=== PATIENT | female | born 1965 | race American Indian/Alaskan Native ===

== ENCOUNTER 2021-06-20 06:50 | Emergency (ER) | payer MEDICAID ==
[2021-06-20] MEDS ORDERED: SODIUM CHLORIDE 0.9% 1000 ML 1,000 ML IV ONE (07:30)
[2021-06-20] MEDS ORDERED: MORPHINE 4 MG/1 ML INJ IV ONE (07:30)
[2021-06-20] MEDS ORDERED: ONDANSETRON 4 MG/2 ML INJ IV ONE ×2 (07:30→11:35)
--- NOTE | 2021-06-20 07:33 | Emergency Department Report ---
ED Chest Pain HPI - General Chief Complaint: Chest Pain Stated Complaint: chest pain Time Seen by Provider: 06/20/21 07:17 Source: patient, EMS Mode of arrival: Stretcher Limitations: No Limitations - History of Present Illness Initial Comments: 56-year-old -Spanish female presents to the emergency department with complaint of a 3-day history of generalized chest pain and upper abdominal pain that began the day after the patient had a cholecystectomy at [facility]. Patient says that she has been taking the prescribed Percocet 5 mg without any relief. The chest pain radiates up towards the upper back and neck. She denies any fever, shortness of breath, nausea, vomiting or diaphoresis. She has a past medical history of hypertension. Patient is a tobacco smoker but has not had any cigarettes since her surgery. Her father had an AR at age 54. - Related Data Home Medications Medication Instructions Recorded Confirmed Last Taken Omeprazole 20 mg PO 06/20/21 1 Day Ago ~06/19/21 Percocet 10/325 mg PO 06/20/21 06/20/21 amLODIPine 10 mg PO 06/20/21 1 Day Ago ~06/19/21 Allergies Allergy/AdvReac Type Severity Reaction Status Date / Time Tetracyclines Allergy Vomiting Verified 06/20/21 07:36 Heart Score - HEART Score History: Slightly suspicious EKG: Normal Age: 45-65 Risk factors: 1-2 risk factors Troponin: < normal limit HEART Score: 2 - EKG Read Time Time EKG Completed: 07:14 EKG Read Time: 07:15 ED Review of Systems ROS: Stated complaint: chest pain Other details as noted in HPI Comment: All other systems reviewed and negative Constitutional: denies: chills, fever Eyes: denies: eye pain, vision change ENT: denies: ear pain, throat pain Respiratory: denies: cough, shortness of breath Cardiovascular: chest pain. denies: palpitations Gastrointestinal: abdominal pain. denies: vomiting Genitourinary: denies: dysuria, discharge Musculoskeletal: back pain. denies: arthralgia Skin: denies: rash, lesions Neurological: denies: headache, weakness ED Past Medical Hx - Past Medical History Hx Hypertension: Yes Additional medical history: Gastritis, Gall Bladder Removal on 06/17/2021 - Surgical History Past Surgical History?: Yes Hx Cholecystectomy: Yes - Medications Home Medications: Home Medications Medication Instructions Recorded Confirmed Last Taken Type Omeprazole 20 mg PO 06/20/21 1 Day Ago History ~06/19/21 Percocet 10/325 mg PO 06/20/21 06/20/21 History amLODIPine 10 mg PO 06/20/21 1 Day Ago History ~06/19/21 ED Physical Exam - General Limitations: No Limitations - Other Other exam information: GENERAL: The patient is well-developed well-nourished. HENT: Normocephalic. Atraumatic. Patient has moist mucous membranes. EYES: Extraocular motions are intact. NECK: Supple. Trachea is midline. CHEST/LUNGS: Clear to auscultation. There is no respiratory distress noted. HEART/CARDIOVASCULAR: Regular. There is no tachycardia. There is no murmur. ABDOMEN: Abdomen is soft. Generalized abdominal tenderness to palpation worse in the upper quadrants. Patient has normal bowel sounds. SKIN: Skin is warm and dry. NEURO: The patient is awake, alert, and oriented. The patient is cooperative. The patient has no focal neurologic deficits. Normal speech. MUSCULOSKELETAL: There is no tenderness or deformity. There is no limitation range of motion. ED Course Vital Signs 06/20/21 06/20/21 06/20/21 07:15 07:29 07:30 Temperature 98.1 F Pulse Rate 81 79 93 H Respiratory 25 H 17 Rate Blood Pressure 163/120 Blood Pressure 163/120 [Left] O2 Sat by Pulse 100 99 Oximetry 06/20/21 06/20/21 06/20/21 07:45 07:50 08:01 Temperature Pulse Rate 88 97 H Respiratory 35 H 20 22 Rate Blood Pressure 163/120 176/119 Blood Pressure [Left] O2 Sat by Pulse 100 100 100 Oximetry 06/20/21 06/20/21 06/20/21 08:15 08:31 08:45 Temperature Pulse Rate 92 H 98 H 95 H Respiratory 37 H 40 H 34 H Rate Blood Pressure 176/119 185/107 185/107 Blood Pressure [Left] O2 Sat by Pulse 100 99 100 Oximetry 06/20/21 06/20/21 06/20/21 09:01 09:08 09:15 Temperature Pulse Rate 90 100 H Respiratory 22 26 H 26 H Rate Blood Pressure 194/119 194/119 Blood Pressure [Left] O2 Sat by Pulse 99 100 Oximetry 06/20/21 06/20/21 06/20/21 09:44 09:45 09:49 Temperature Pulse Rate 97 H 97 H 100 H Respiratory 37 H 26 H Rate Blood Pressure 202/118 202/118 202/118 Blood Pressure [Left] O2 Sat by Pulse 98 99 Oximetry 06/20/21 06/20/21 06/20/21 10:01 10:15 10:31 Temperature Pulse Rate 106 H 103 H 105 H Respiratory 20 22 24 Rate Blood Pressure 185/128 185/128 194/119 Blood Pressure [Left] O2 Sat by Pulse 98 97 97 Oximetry 06/20/21 06/20/21 06/20/21 10:45 11:01 11:15 Temperature Pulse Rate 106 H 101 H Respiratory 19 21 Rate Blood Pressure 194/119 185/128 185/128 Blood Pressure [Left] O2 Sat by Pulse 98 96 98 Oximetry 06/20/21 06/20/21 06/20/21 11:30 11:45 12:01 Temperature Pulse Rate 100 H 99 H Respiratory 36 H 19 Rate Blood Pressure 157/114 172/105 188/110 Blood Pressure [Left] O2 Sat by Pulse 96 100 99 Oximetry 06/20/21 06/20/21 06/20/21 12:15 12:31 12:45 Temperature Pulse Rate 99 H 98 H 98 H Respiratory 19 24 20 Rate Blood Pressure 157/114 189/117 189/117 Blood Pressure [Left] O2 Sat by Pulse 98 98 98 Oximetry 06/20/21 06/20/21 06/20/21 13:01 13:15 13:31 Temperature Pulse Rate 100 H 98 H 89 Respiratory 20 18 20 Rate Blood Pressure 173/103 188/110 170/101 Blood Pressure [Left] O2 Sat by Pulse 98 98 98 Oximetry 06/20/21 13:45 Temperature Pulse Rate 96 H Respiratory 21 Rate Blood Pressure 170/101 Blood Pressure [Left] O2 Sat by Pulse 98 Oximetry - Consultations Consultation #1: 06/20/21 13:23 I initially spoke with my general surgeon on-call, Dr. Lombardi, after the x-ray findings showed signs of free air. He feels that this is consistent with the patient's recent laparoscopic cholecystectomy. I later spoke with Dr. Lombardi again after CT findings of the abdomen and pelvis showing a moderate amount of free air, and some fluid in the gallbladder fossa and along the right hepatic lobe that could be postoperative fluid versus bile leak. He agrees that the patient needs a HIDA scan but given the recent surgery at [facility], and the fact that we cannot get a stat HIDA scan, he recommends attempting to transfer to [facility]. Consultation #2: 06/20/21 13:25 I spoke with the patient's [facility] general surgeon, Dr. Rodriguez, who has accepted the patient for transfer to the emergency department where he will do evaluation. I then spoke with the emergency physician at [facility], Dr. Garcia, who also has accepted the patient for transfer to the emergency department. DICK score - Dick Score Age > 65: (0) No Aspirin use within the Past 7 Days: (0) No 3 or more CAD Risk Factors: (0) No 2 or more Angina events in past 24 hrs: (1) Yes Known CAD with more than 50% Stenosis: (0) No Elevated Cardiac Markers: (0) No ST Deviation Greater than 0.5mm: (0) No DICK Score: 1 ED Medical Decision Making - Lab Data Result diagrams: 06/20/21 08:36 06/20/21 08:36 Lab Results 06/20/21 06/20/21 06/20/21 Range/Units 08:36 08:36 08:36 WBC 14.4 H (4.5-11.0) K/mm3 RBC 5.10 H (3.65-5.03) M/mm3 Hgb 15.9 H (10.1-14.3) gm/dl Hct 46.1 H (30.3-42.9) % MCV 90 (79-97) fl MCH 31 (28-32) pg MCHC 35 H (30-34) % RDW 13.2 (13.2-15.2) % Plt Count 245 (140-440) K/mm3 Lymph % (Auto) 30.4 (13.4-35.0) % Burke % (Auto) 10.6 H (0.0-7.3) % Eos % (Auto) 1.6 (0.0-4.3) % Baso % (Auto) 0.5 (0.0-1.8) % Lymph # (Auto) 4.4 (1.2-5.4) K/mm3 Burke # (Auto) 1.5 H (0.0-0.8) K/mm3 Eos # (Auto) 0.2 (0.0-0.4) K/mm3 Baso # (Auto) 0.1 (0.0-0.1) K/mm3 Seg Neutrophils % 56.9 (40.0-70.0) % Seg Neutrophils # 8.2 H (1.8-7.7) K/mm3 D-Dimer 592.16 H (0-234) ng/mlDDU Sodium 140 (137-145) mmol/L Potassium 3.3 L (3.6-5.0) mmol/L Chloride 98.9 (98-107) mmol/L Carbon Dioxide 23 (22-30) mmol/L Anion Gap 21 mmol/L BUN 6 L (7-17) mg/dL Creatinine 0.5 L (0.6-1.2) mg/dL Estimated GFR > 60 ml/min BUN/Creatinine Ratio 12 % Glucose 120 H (65-100) mg/dL Calcium 9.4 (8.4-10.2) mg/dL Total Bilirubin 0.80 (0.1-1.2) mg/dL AST 21 (5-40) units/L ALT 15 (7-56) units/L Alkaline Phosphatase 82 (35-129) units/L Troponin T < 0.010 (0.00-0.029) ng/mL Total Protein 8.0 (6.3-8.2) g/dL Albumin 4.4 (3.9-5) g/dL Albumin/Globulin Ratio 1.2 % Lipase 17 (13-60) units/L 11/27/21 Range/Units 10:53 WBC (4.5-11.0) K/mm3 RBC (3.65-5.03) M/mm3 Hgb (10.1-14.3) gm/dl Hct (30.3-42.9) % MCV (79-97) fl MCH (28-32) pg MCHC (30-34) % RDW (13.2-15.2) % Plt Count (140-440) K/mm3 Lymph % (Auto) (13.4-35.0) % Burke % (Auto) (0.0-7.3) % Eos % (Auto) (0.0-4.3) % Baso % (Auto) (0.0-1.8) % Lymph # (Auto) (1.2-5.4) K/mm3 Burke # (Auto) (0.0-0.8) K/mm3 Eos # (Auto) (0.0-0.4) K/mm3 Baso # (Auto) (0.0-0.1) K/mm3 Seg Neutrophils % (40.0-70.0) % Seg Neutrophils # (1.8-7.7) K/mm3 D-Dimer (0-234) ng/mlDDU Sodium (137-145) mmol/L Potassium (3.6-5.0) mmol/L Chloride (98-107) mmol/L Carbon Dioxide (22-30) mmol/L Anion Gap mmol/L BUN (7-17) mg/dL Creatinine (0.6-1.2) mg/dL Estimated GFR ml/min BUN/Creatinine Ratio % Glucose (65-100) mg/dL Calcium (8.4-10.2) mg/dL Total Bilirubin (0.1-1.2) mg/dL AST (5-40) units/L ALT (7-56) units/L Alkaline Phosphatase (35-129) units/L Troponin T < 0.010 (0.00-0.029) ng/mL Total Protein (6.3-8.2) g/dL Albumin (3.9-5) g/dL Albumin/Globulin Ratio % Lipase (13-60) units/L - EKG Data -: EKG Interpreted by Or EKG shows normal: sinus rhythm, axis, intervals, QRS complexes, ST-T waves Rate: normal - EKG Data When compared to previous EKG there are: previous EKG unavailable Interpretation: normal EKG - Radiology Data Radiology results: report reviewed Abdominal series with frontal chest INDICATION: Chest and abdominal pain IMP RESSION: Upright view demonstrates lucency beneath the right hemidiaphragm concerning for free intra-abdominal air. There is also some hyperlucency involving the area beneath the left hemidiaphragm. There is evidence of right- sided nephrolithiasis. Moderate stool burden throughout the colon. The overall bowel gas pattern is nonobstructive CT abdomen pelvis w con INDICATION / CLINICAL INFORMATION: Abd pain, recent cholecystectomy, free air. TECHNIQUE: CT of the abdomen and pelvis with IV contrast. A total of 79 mL of Omnipaque 350 injected per protocol All CT scans at this location are performed using CT dose reduction for ALARA by means of automated exposure control. COMPARISON: None available. FINDINGS: Abdomen and pelvis: A moderate volume of free air is identified along the anterior and upper abdomen scattered free gas is identified throughout much of the mid and lower abdomen as well. There is evidence of cholecystectomy. There is intermediate density fluid along the gallbladder fossa tracking along the right hepatic lobe. The spleen appears mildly decreased in size. The pancreas is unremarkable although the main pancreatic duct is borderline prominent at 2 mm. The adrenal glands and kidneys are unremarkable. There is scattered atherosclerotic calcification throughout the abdominal aorta. Urinary bladder is unremarkable. The uterus is unremarkable. No significant free pelvic fluid. There are a few sigmoid diverticula. There is a prominent ventral abdominal hernia/diastases involving the lower abdominal wall at the level the midpelvis measuring about 1.6 cm in diameter. The hernia contains a moderate amount of mesenteric fat. Some gas is noted along the abdominal wall musculature, consistent with recent surgery. Review of bone windows demonstrates moderate t horacolumbar degenerative changes. IMPRESSION: 1. Moderate volume of free air within the abdomen could be consistent with recent surgery. There is a small amount of intermediate density fluid along the gallbladder fossa and tracking along the right hepatic lobe that may represent postoperative fluid but a localized bile leak is difficult to exclude given the overall appearance. CTA CHEST WITH IV CONTRAST INDICATION: Acute onset chest pain with dyspnea. TECHNIQUE: Axial CT images were obtained through the chest after injection of 79 mL Omnipaque 350 IV contrast. 3 plane MIP reconstructions were produced. All CT scans at this location are performed using CT dose reduction for ALARA by means of automated exposure control. COMPARISON: None available. FINDINGS: PULMONARY ARTERIES: No pulmonary emboli. AORTA AND ARTERIES: No acute abnormality. MEDIASTINUM: No mass, lymphadenopathy or other significant abnormality. The heart is normal in size without a pericardial effusion. The trachea and main bronchi are patent and normal in caliber. LUNGS: No suspicious consolidation, nodule or mass. No pneumothorax or pleural effusion. Emphysema. Several calcified granulomas noted within the left lung. ADDITIONAL FINDINGS: None. UPPER ABDOMEN: See separately dictated CT abdomen and pelvis. BONES: No significant osseous abnormality. IMPRESSION: 1. No CT evidence for pulmonary embolism. 2. No acute findings. - Medical Decision Making This patient presents to the emergency department with upper abdominal pain and chest pain. EKG did not have any morphology consistent with ST elevation myocardial infarction. Chest x-ray does not show any pneumonia, pleural e ffusions, pneumothorax, widened mediastinum. Abdominal x-ray shows concern for free air, but this is not uncommon after laparoscopic surgery. Patient's labs shows a leukocytosis of 14,000, mild hypokalemia with potassium of 3.3, and negative troponins x2 thus far. CT angiography of the chest does not show any pulmonary embolism, dissection, or any other acute process. CT of the abdomen and pelvis with IV contrast shows moderate amount of free air, and there is fluid within the gallbladder fossa and around the right hepatic lobe that could be postoperative fluid versus bile leak. She has received some IV fluid resuscitation, antiemetics, and multiple doses of IV analgesia with some impro vement of her discomfort. The patient will need a HIDA scan and evaluation from general surgery and/or gastroenterology. I spoke with the patient's [facility] general surgeon who has accepted the patient for transfer to the [facility] main emergency department. Critical Care Time: No Critical care attestation.: If time is entered above; I have spent that time in minutes in the direct care of this critically ill patient, excluding procedure time. ED Disposition Clinical Impression: Postoperative abdominal pain, Free intraperitoneal air, Abnormal CT of the abdomen Chest pain Qualifiers: Chest pain type: unspecified Qualified Code(s): R07.9 - Chest pain, unspecified Hypertension Qualifiers: Hypertension type: primary hypertension Qualified Code(s): I10 - Essential (primary) hypertension Disposition: [address] [place] [address] CARE FACILITY Is pt being admited?: No Condition: Fair Instructions: Hypertension (ED) Time of Disposition: 13:27
[2021-06-20] MEDS ORDERED: HYDROmorphone 1 MG/1 ML INJ IV ONE ×3 (08:32→14:56)
[2021-06-20] MEDS ORDERED: SIMETHICONE 80 MG CHEW TAB PO ONE (08:32)
--- NOTE | 2021-06-20 08:44 | XRay Report ---
Abdominal series with frontal chest INDICATION: Chest and abdominal pain IMPRESSION: Upright view demonstrates lucency beneath the right hemidiaphragm concerning for free int ra-abdominal air. There is also some hyperlucency involving the area beneath the left hemidiaphragm. There is evidence of right-sided nephrolithiasis. Moderate stool burden throughout the colon. The ove rall bowel gas pattern is nonobstructive CRITICAL RESULT: Free intra-abdominal air Time of Discovery: 7:30 AM central time Time of Communication: 7:37 AM central time Licensed Practitioner Receiving Report: Talon CADENA Read Back Performed: Yes. Signer Name: Tera Leung MD Signed: 06/20/2021 8:40 AM Workstation Name: [id number]
[2021-06-20 08:49] LABS: Basophils # (Auto) 0.1 K/mm3 (0.0-0.1); Basophils % (Auto) 0.5 % (0.0-1.8); Eosinophils # (Auto) 0.2 K/mm3 (0.0-0.4); Eosinophils % (Auto) 1.6 % (0.0-4.3); Hematocrit 46.1 % (30.3-42.9); Hemoglobin 15.9 gm/dl (10.1-14.3); Lymphocytes # (Auto) 4.4 K/mm3 (1.2-5.4); Lymphocytes % (Auto) 30.4 % (13.4-35.0); Mean Corpuscular HGB Conc 35 % (30-34); Mean Corpuscular Volume 90 fl (79-97); Monocytes # (Auto) 1.5 K/mm3 (0.0-0.8); Monocytes % (Auto) 10.6 % (0.0-7.3); Platelet Count 245 K/mm3 (140-440); Red Cell Distribution Width 13.2 % (13.2-15.2)
[2021-06-20 09:13] LABS: Alanine Aminotransferase 15 units/L (7-56); Albumin 4.4 g/dL (3.9-5); BUN/Creatinine Ratio 12; Blood Urea Nitrogen 6 mg/dL (7-17); Calcium 9.4 mg/dL (8.4-10.2); Hemolysis Index 9
[2021-06-20] MEDS ORDERED: hydrALAZINE 20 MG/1 ML INJ IV ONE (09:44)
--- NOTE | 2021-06-20 10:34 | Cat Scan Report ---
CTA CHEST WITH IV CONTRAST INDICATION: Acute onset chest pain with dyspnea. TECHNIQUE: Axial CT images were obtained through the chest after injection of 79 mL Omnipaque 350 IV contrast. 3 plane MIP reconstructions were produced. All CT scans at this location are performed using CT dose r eduction for ALARA by means of automated exposure control. COMPARISON: None available. FINDINGS: PULMONARY ARTERIES: No pulmonary emboli. AORTA AND ARTERIES: No acute abnormality. MEDIASTINUM: No mass, lymphadenopathy or other significant abnormality. The heart is normal in size w ithout a pericardial effusion. The trachea and main bronchi are patent and normal in caliber. LUNGS: No suspicious consolidation, nodule or mass. No pneumothorax or pleural effusion. Emphysema. Several calcified granulomas noted within the left lung. ADDITIONAL FINDINGS: None. UPPER ABDOMEN: See separately dictated CT abdomen and pelvis. BONES: No significant osseous abnormality. IMPRESSION: 1. No CT evidence for pulmonary embolism. 2. No acute findings. Signer Name: Tera Leung MD Signed: 06/20/2021 10:29 AM Workstation Name: [id number]
--- NOTE | 2021-06-20 10:58 | Cat Scan Report ---
CT abdomen pelvis w con INDICATION / CLINICAL INFORMATION: Abd pain, recent cholecystectomy, free air. TECHNIQUE: CT of the abdomen and pelvis with IV contrast. A total of 79 mL of Omnipaque 350 injected per protoco l All CT scans at this location are performed using CT dose reduction for ALARA by means of automated exposure control. COMPARISON: None available. FINDINGS: Abdomen and pelvis: A moderate volume of free air is identified along the anterior and upper abdomen scattered free gas is identified throughout much of the mid and lower abdomen as well. There is evide nce of cholecystectomy. There is intermediate density fluid along the gallbladder fossa tracking jeffry g the right hepatic lobe. The spleen appears mildly decreased in size. The pancreas is unremarkable a lthough the main pancreatic duct is borderline prominent at 2 mm. The adrenal glands and kidneys are unremarkable. There is scattered atherosclerotic calcification throughout the abdominal aorta. Urinary bladder is unremarkable. The uterus is unremarkable. No significant free pelvic fluid. There are a few sigmoid diverticula. There is a prominent ventral abdominal hernia/diastases involving the lower abdominal wall at the lev el the midpelvis measuring about 1.6 cm in diameter. The hernia contains a moderate amount of mesente nasir fat. Some gas is noted along the abdominal wall musculature, consistent with recent surgery. Revi ew of bone windows demonstrates moderate thoracolumbar degenerative changes. IMPRESSION: 1. Moderate volume of free air within the abdomen could be consistent with recent surgery. There is a small amount of intermediate density fluid along the gallbladder fossa and tracking along the right hepatic lobe that may represent postoperative fluid but a localized bile leak is difficult to exclude given the overall appearance. HIDA scan would be useful for further evaluation if there is strong cl inical concern for bile leak. Signer Name: Tera Leung MD Signed: 06/20/2021 10:54 AM Workstation Name: [id number]
--- NOTE | 2021-06-20 13:52 | Consultation ---
History of Present Illness - Reason for Consult Consult date: 06/20/21 Medical Evaluation Requesting physician: STACIE PRICE - History of Present Illness 56 YO Female with HTN, GERD, PUD presents to ED for evaluation. Patient reports "my stomach hurts". Patient states that she has experienced abdominal pain over the past 3 days with persistent symptoms over the same timeframe. Patient is postop day 4 status post cholecystectomy at [facility]. EMS notified and upon arrival the patient was found to be in distress and subsequent transported to [facility] for further care and evaluation of the aforementioned symptoms. The patient was seen and evaluated in the emergency department. All lab and imaging studies reviewed. Patient with CT scan of the abdomen and pelvis and was found to have fluid in the gallbladder fossa with possibility of anastomotic leak. Patient has fever, chills, chest pain or palpitation or productive cough, skin rash, recent contact, known exposure to COVID-19. No prior admission for review. Advance care planning conducted in ED. Past History Past Medical History: GERD, hypertension Past Surgical History: cholecystectomy Social history: single. denies: smoking, alcohol abuse Family history: hypertension Medications and Allergies Allergies Allergy/AdvReac Type Severity Reaction Status Date / Time Tetracyclines Allergy Vomiting Verified 06/20/21 07:36 Home Medications Medication Instructions Recorded Confirmed Last Taken Type Omeprazole 20 mg PO 06/20/21 1 Day Ago History ~06/19/21 Percocet 10/325 mg PO 06/20/21 06/20/21 History amLODIPine 10 mg PO 06/20/21 1 Day Ago History ~06/19/21 Active Meds: Active Medications Sodium Chloride (Nacl 0.9% 1000 Ml) 1,000 mls @ 125 mls/hr IV ONCE ONE Stop: 06/20/21 15:29 Last Admin: 06/20/21 07:48 Dose: 125 mls/hr Documented by: Review of Systems Constitutional: no weight loss, no weight gain, no fever, no chills Ears, nose, mouth and throat: no ear pain, no tinnitis, no decreased hearing, no nasal discharge Breasts: no change in shape, no swelling Cardiovascular: no chest pain, no orthopnea, no rapid/irregular heart beat, no edema, no syncope Respiratory: no cough, no excessive sputum, no hemoptysis Gastrointestinal: abdominal pain, no nausea, no vomiting, no constipation, no hematemesis, no BRBPR, no melena, no loss of appetite, no heartburn Genitourinary Female: no pelvic pain, no flank pain, no dysuria, no urinary frequency, no urgency Rectal: no pain, no incontinence, no bleeding Musculoskeletal: no neck stiffness, no neck pain Integumentary: no rash, no pruritis, no sores, no wounds, no jaundice Neurological: no head injury, no paralysis, no parathesias, no numbness, no tingling Psychiatric: no anxiety, no sleep disturbances, no hypersomnia, no change in libido, no suicidal ideation, no hallucinations Endocrine: no cold intolerance, no polyphagia, no polyuria Hematologic/Lymphatic: no easy bruising, no lymphedema Allergic/Immunologic: no urticaria, no anaphylaxis, no angioedema Exam - Constitutional Vitals: Temp Pulse Resp BP Pulse Ox 98.1 F 96 H 21 170/101 98 06/20/21 07:30 06/20/21 13:45 06/20/21 13:45 06/20/21 13:45 06/20/21 13:45 General appearance: Present: mild distress - EENT Eyes: Present: PERRL ENT: hearing intact, clear oral mucosa - Neck Neck: Present: supple, normal ROM - Respiratory Respiratory effort: normal Respiratory: bilateral: CTA - Cardiovascular Heart Sounds: Present: S1 & S2. Absent: rub, click - Extremities Extremities: pulses symmetrical, No edema Peripheral Pulses: within normal limits - Abdominal General gastrointestinal: Present: soft, non-tender, tender, non-distended, normal bowel sounds Localized gastrointestinal: tender: epigastric periumbilical Female genitourinary: Present: normal - Integumentary Integumentary: Present: clear, warm, dry - Musculoskeletal Musculoskeletal: gait normal, strength equal bilaterally - Psychiatric Psychiatric: appropriate mood/affect, intact judgment & insight - Neurologic Neurologic: CNII-XII intact, moves all extremities Results - Labs CBC & Chem 7: 06/20/21 08:36 06/20/21 08:36 Labs: Abnormal lab results 06/20/21 06/20/21 06/20/21 Range/Units 08:36 08:36 08:36 WBC 14.4 H (4.5-11.0) K/mm3 RBC 5.10 H (3.65-5.03) M/mm3 Hgb 15.9 H (10.1-14.3) gm/dl Hct 46.1 H (30.3-42.9) % MCHC 35 H (30-34) % [place] % (Auto) 10.6 H (0.0-7.3) % [place] # (Auto) 1.5 H (0.0-0.8) K/mm3 Seg Neutrophils # 8.2 H (1.8-7.7) K/mm3 D-Dimer 592.16 H (0-234) ng/mlDDU Potassium 3.3 L (3.6-5.0) mmol/L BUN 6 L (7-17) mg/dL Creatinine 0.5 L (0.6-1.2) mg/dL Glucose 120 H (65-100) mg/dL Assessment and Plan - Patient Problems (1) Abnormal CT of the abdomen Status: Acute Plan to address problem: Free fluid in the gallbladder fossa suspected secondary to postoperative changes versus anastomotic leak. Recommend transfer to [facility] for surgical reevaluation by operating surgeon. Pain control, IV fluid resuscitation therapy, supportive care. Empiric IV antibiotic therapy as clinically indicated (2) Hypertension Status: Acute Qualifiers: Hypertension type: primary hypertension Qualified Code(s): I10 - Essential (primary) hypertension Plan to address problem: Monitor blood pressure every shift, continue medical management. Pain control. (3) Postoperative abdominal pain Status: Acute Plan to address problem: CT scan abdomen and pelvis, serial abdominal exam, supportive care. (4) Advance care planning Status: Acute Plan to address problem: Disease education conducted, care plan discussed, diagnoses discussed, prognosis discussed. Patient is full code. Patient informed of care plan. Recommend transfer to [facility] for evaluation by operating surgeon. If transfer refused patient may be admitted to [facility] for further care. Care plan discussed with Dr. Leanne babb. Patient knowledges understanding and agreement with care plan, +30 minutes.
[2021-06-20] MEDS ORDERED: POTASSIUM CHLORIDE ER 20 MEQ TAB PO ONE (14:40)
[2021-06-20 15:20] VITALS: BP 163/98
--- NOTE | 2021-06-21 00:50 | Consultation ---
DATE OF CONSULTATION: 06/20/2021 REFERRING PHYSICIAN: Dr. Ambrose Sousa. INDICATION: Abdominal pain. HISTORY OF PRESENT ILLNESS: The patient is a 56-year-old black female with a history of GERD, hypertension, peptic ulcer disease in the past, who is status post laparoscopic cholecystectomy 3 days ago, now presents for abdominal pain. The patient reports that she has been taking multiple pain medications since surgery and the pain has progressively gotten worse. She reports small amount of flatus. Denies any reports of nausea or vomiting. No bloody stools. The patient subsequently came to the Emergency Room where a question of bile leak was raised and she is to be admitted or transferred to [facility] with GI consulted. No other specific complaints. PAST MEDICAL HISTORY: 1. Hypertension. 2. Reflux. 3. Peptic ulcer disease. MEDICATIONS: Reviewed and updated in chart. ALLERGIES: No known drug allergies. SOCIAL HISTORY: Positive smoker. FAMILY HISTORY: Negative for colon cancer, IBD, or liver disease. REVIEW OF SYSTEMS: GENERAL: Reports some weakness. HEENT: Denies visual complaints or tinnitus. PULMONARY: Denies shortness of breath, chest pain. GASTROINTESTINAL: Reports some abdominal pain. All other points in a 13-point review of system otherwise negative. PHYSICAL EXAMINATION: VITAL SIGNS: Temperature of 98.0, pulse 80, respiratory rate 20, blood pressure 160/90. GENERAL: Fairly nourished female in mild distress. HEENT: Pupils round and reactive. PULMONARY: Rhonchi. CARDIOVASCULAR: Regular rate and rhythm. Normal S1, S2. ABDOMEN: Positive bowel sounds, soft. SKIN: No obvious rashes. LABORATORY DATA: Pertinent for white count of 14.4, hemoglobin and hematocrit of 15.9 and 46.1, platelet count of 245. Chem-[address] scan abdomen and pelvis with contrast from 06/20 showed free air consistent with previous cholecystectomy and fluid around the gallbladder fossa with tracking, raising the possibility of a bile leak. ASSESSMENT: A 56-year-old female who presents after 3 days ago having a laparoscopic cholecystectomy with worsening abdominal pain with CT scan showing small amount of free air consistent with her laparoscopic cholecystectomy, but also raising the possibility of bile leak. The patient is also being set up for possible transfer to [facility] where she had her surgery. PLAN: 1. Would recommend HIDA scan today. 2. If HIDA scan is consistent with bile leak, we will consider ERCP over the next 1-2 days. 3. N.p.o. and IV fluids. 4. Other issues per primary team. 5. We will follow. TID: [id number] RECEIPT: [id number] RACHELE/AB/OUMOU
== END 2021-06-20 15:20 ==
LOC: ED 06:50
DX: G89.18 Other acute postprocedural pain (principal); R10.9 Unspecified abdominal pain; K66.8 Other specified disorders of peritoneum; R93.5 Abnormal findings on diagnostic imaging of other abdominal regions, including retroperitoneum; R07.9 Chest pain, unspecified; I10 Essential (primary) hypertension; Z90.49 Acquired absence of other specified parts of digestive tract; Z98.890 Other specified postprocedural states; Z88.1 Allergy status to other antibiotic agents
CPT/HCPCS: 36415; 71275; 74022; 74177; 80053; 83690; 84484; 85025; 85379; 93005; 96361; 96374; 96375; 96376; 99285; J0360; J1170; J2270; J2405; J7030; Q9967; Q0162